=== PATIENT | male | born 1950 | race Caucasian/White ===

== ENCOUNTER → 2022-10-11 | Outpatient (CLI) | payer OTHER ==
[~2022-10-11] MED LIST: ACET325 PO; AMLO5 PO; GLIM2 PO; Lopressor 25 mg25 MG PO; SULTRIDS PO
== END | disposition home or self-care (01) ==
LOC: LAB SHORT 12:14 → LAB 12:14
DX: L57.0 Actinic keratosis (principal)
CPT/HCPCS: 88305

== ENCOUNTER → 2025-04-21 | Outpatient (CLI) | payer OTHER ==
[2025-04-21 13:21] LABS: BASOPHILS ABSOLUTE AUTO 0.07 K/mm3 (0.00-0.23); BASOPHILS PERCENT AUTO 1 % (0-2); EOSINOPHILS ABSOLUTE AUTO 0.27 K/mm3 (0.00-0.68); EOSINOPHILS PERCENT AUTO 4 % (0-6); Hematocrit 38.0 % (37.0-53.0); Hemoglobin 12.5 g/dL (13.5-17.5); IMMATURE GRAN ABSOLUTE AUTO 0.03 K/mm3 (0.00-0.10); IMMATURE GRAN PERCENT AUTO 0 % (0-1); LYMPHOCYTES ABSOLUTE AUTO 1.34 K/mm3 (0.84-5.20); LYMPHOCYTES PERCENT AUTO 20 % (21-46); MONOCYTES ABSOLUTE AUTO 0.66 K/mm3 (0.16-1.47); MONOCYTES PERCENT AUTO 10 % (4-13); Mean Corpuscular HGB Conc 32.9 g/dL (31.5-36.5); Mean Corpuscular Volume 101 fL (80-100); NEUTROPHILS ABSOLUTE AUTO 4.38 K/mm3 (1.96-9.15); NEUTROPHILS PERCENT AUTO 65 % (41-73); NRBC ABSOLUTE 0.00 K/mm3 (0.00-0.02); NRBC Auto 0.0 /100 WBC (0.0-0.2); Platelet Count 160 K/mm3 (150-400); RDW Coefficient Variation 14.5 % (11.7-14.2); RDW Standard Deviation 53.2 fL (35.1-46.3)
[2025-04-21 15:03] LABS: Alanine Aminotransfer (ALT/SGP 36.0 U/L (12-78); Albumin, Blood 4.2 g/dL (3.4-5.0); Albumin/Globulin Ratio 1.1 (0.8-1.8); Anion Gap 13.0 mmol/L (3-11); Aspartate Aminotrans (AST/SGOT 21.0 U/L (12-37); Bilirubin, Total 1.1 mg/dL (0.1-1.0); Blood Urea Nitrogen 86.0 mg/dL (8-24); CO2, Blood 21.0 mmol/L (21-32); Calcium, Blood 9.4 mg/dL (8.5-10.1); Chloride, Blood 109.0 mmol/L (98-108); Creatinine, Blood 4.1 mg/dL (0.60-1.20); Globulin, Blood 3.8 g/dL (2.2-4.0); Glucose, Blood 140.0 mg/dL (70-99); Potassium, Blood 5.1 mmol/L (3.5-5.5); Sodium, Blood 138.0 mmol/L (136-145); Total Protein, Blood 8.0 g/dL (6.4-8.2)
== END | disposition home or self-care (01) ==
LOC: LAB SHORT 09:24 → LAB 09:24 → LAB FUT 10-27 08:35
PROVIDERS: Physician Assistant Medical
DX: I12.9 Hypertensive chronic kidney disease with stage 1 through stage 4 chronic kidney disease, or unspecified chronic kidney disease (principal); E11.22 Type 2 diabetes mellitus with diabetic chronic kidney disease; N18.4 Chronic kidney disease, stage 4 (severe); E11.42 Type 2 diabetes mellitus with diabetic polyneuropathy; R60.1 Generalized edema; R06.02 Shortness of breath
CPT/HCPCS: 36415; 80053; 83036; 83880; 85025

== ENCOUNTER 2025-04-25 13:54 | Inpatient (IN) | payer OTHER ==
[~2025-04-25] VITALS: Ht 172.7 cm; Wt 86.2 kg
[2025-04-25 14:33] LABS: BASOPHILS ABSOLUTE AUTO 0.09 K/mm3 (0.00-0.23); BASOPHILS PERCENT AUTO 1 % (0-2); EOSINOPHILS ABSOLUTE AUTO 0.14 K/mm3 (0.00-0.68); EOSINOPHILS PERCENT AUTO 2 % (0-6); Hematocrit 36.1 % (37.0-53.0); Hemoglobin 11.9 g/dL (13.5-17.5); IMMATURE GRAN ABSOLUTE AUTO 0.04 K/mm3 (0.00-0.10); IMMATURE GRAN PERCENT AUTO 1 % (0-1); LYMPHOCYTES ABSOLUTE AUTO 0.80 K/mm3 (0.84-5.20); LYMPHOCYTES PERCENT AUTO 10 % (21-46); MONOCYTES ABSOLUTE AUTO 0.66 K/mm3 (0.16-1.47); MONOCYTES PERCENT AUTO 8 % (4-13); Mean Corpuscular HGB Conc 33.0 g/dL (31.5-36.5); Mean Corpuscular Volume 102 fL (80-100); NEUTROPHILS ABSOLUTE AUTO 6.46 K/mm3 (1.96-9.15); NEUTROPHILS PERCENT AUTO 79 % (41-73); NRBC ABSOLUTE 0.00 K/mm3 (0.00-0.02); NRBC Auto 0.0 /100 WBC (0.0-0.2); Platelet Count 135 K/mm3 (150-400); RDW Coefficient Variation 14.6 % (11.7-14.2); RDW Standard Deviation 54.1 fL (35.1-46.3)
[2025-04-25 14:35] LABS: pH Blood Venous 7.33 (7.34-7.37)
[2025-04-25 14:46] LABS: Anion Gap 12.0 mmol/L (3-11); Blood Urea Nitrogen 84.0 mg/dL (8-24); CO2, Blood 19.0 mmol/L (21-32); Calcium, Blood 9.2 mg/dL (8.5-10.1); Chloride, Blood 109.0 mmol/L (98-108); Creatinine, Blood 4.6 mg/dL (0.60-1.20); Glucose, Blood 189.0 mg/dL (70-99); Potassium, Blood 5.2 mmol/L (3.5-5.5); Sodium, Blood 135.0 mmol/L (136-145)
[2025-04-25 15:11] LABS: Influenza A, PCR NEGATIVE (NEGATIVE); Influenza B, PCR NEGATIVE (NEGATIVE); Resp Syncytial Virus, PCR NEGATIVE (NEGATIVE); SARS-Cov-2 (COVID-19) PCR, MMC NEGATIVE (NEGATIVE)
[2025-04-25] MEDS ORDERED: Dose Adjust by Pharmacy XX STA (15:30)
[2025-04-25] MEDS ORDERED: Heparin Sodium 5000 Units/ML 1ML MDV IV ONE (15:35)
[2025-04-25 15:45] LABS: Anti-Xa UFH, PHA Monitoring <0.10 IU/mL; Prothrombin Time Results 11.0 Sec (9.7-11.5)
[2025-04-25] MEDS ORDERED: Heparin Sodium,Porcine/0.5 NS 500 ML IV SCH (16:00)
[2025-04-25] MEDS ORDERED: SODBIC650 PO (18:45)
[2025-04-25] MEDS ORDERED: VITAMIN D5000 UNIT PO (18:45)
[2025-04-25] MEDS ORDERED: LOSA50 PO (18:45)
[2025-04-25] MEDS ORDERED: AMLO10 PO (18:46)
[2025-04-25] MEDS ORDERED: ALLO100 PO (18:46)
[2025-04-25] MEDS ORDERED: FURO40 PO (18:47)
[2025-04-25] MEDS ORDERED: CALC.25 PO (18:49)
[2025-04-25] MEDS ORDERED: GABA300 PO (18:50)
[2025-04-25] MEDS ORDERED: GLIM2 PO (18:52)
--- NOTE | 2025-04-25 18:53 | NUR ---
PT ARRIVED IN THE ROOM FROM [facility], REPORT RECEIVED FROM LUIS EDUARDO HAZEL., PT GOT SITUATED IN BED TRANSFERRED VIA SLIDER SHEET PT GETS REALLY SHORT OF BREATH WITH EXERTION. VITALS HRR SR 70'S, SBP 140'S, SATS ABOVE 90% ON 6L OF O2 VIA NASAL CANNULA, AFEBRILE. PT RECEIVED IV LASIX PRIOR TO ARRIVAL. HOME MEDICATION RECONCILED BROUGHT IN MEDS FROM HOME. PT NOW RESTING IN BED WILL REPORT TO ONCOMING SHIFT
[2025-04-25 18:56] VITALS: BP 149/73
--- NOTE | 2025-04-25 19:35 | NUR ---
ASSUMPTION OF CARE ASSUMED PT'S CARE AT 1900,BEDSIDE REPORT COMPLETED.PT SITTING UP IN BED EATING DINNER.PLAN OF CARE REVIEWED.PT A&O X4,DENIES PAIN,DENIES SOB AT REST.CALL LIGHT AND PT'S ITEMS WITHIN REACH.MONITORING ONGOING PER CAREPLAN.
[2025-04-25 20:18] VITALS: BP 140/103
[2025-04-25] MEDS ORDERED: Insulin Human Lispro 100 Units/ML 3ML Syringe SC SCH (21:00)
[2025-04-26] VITALS (8 sets, daily range): BP systolic 112–142; BP diastolic 56–94
[2025-04-26 04:44] LABS: BASOPHILS ABSOLUTE AUTO 0.06 K/mm3 (0.00-0.23); BASOPHILS PERCENT AUTO 1 % (0-2); EOSINOPHILS ABSOLUTE AUTO 0.20 K/mm3 (0.00-0.68); EOSINOPHILS PERCENT AUTO 3 % (0-6); Hematocrit 32.8 % (37.0-53.0); Hemoglobin 10.6 g/dL (13.5-17.5); IMMATURE GRAN ABSOLUTE AUTO 0.02 K/mm3 (0.00-0.10); IMMATURE GRAN PERCENT AUTO 0 % (0-1); LYMPHOCYTES ABSOLUTE AUTO 0.76 K/mm3 (0.84-5.20); LYMPHOCYTES PERCENT AUTO 12 % (21-46); MONOCYTES ABSOLUTE AUTO 0.74 K/mm3 (0.16-1.47); MONOCYTES PERCENT AUTO 12 % (4-13); Mean Corpuscular HGB Conc 32.3 g/dL (31.5-36.5); Mean Corpuscular Volume 103 fL (80-100); NEUTROPHILS ABSOLUTE AUTO 4.42 K/mm3 (1.96-9.15); NEUTROPHILS PERCENT AUTO 71 % (41-73); NRBC ABSOLUTE 0.00 K/mm3 (0.00-0.02); NRBC Auto 0.0 /100 WBC (0.0-0.2); Platelet Count 124 K/mm3 (150-400); RDW Coefficient Variation 14.5 % (11.7-14.2); RDW Standard Deviation 54.6 fL (35.1-46.3)
[2025-04-26 05:16] LABS: Albumin, Blood 3.3 g/dL (3.4-5.0); Anion Gap 13 mmol/L (3-11); Blood Urea Nitrogen 82 mg/dL (8-24); CO2, Blood 20 mmol/L (21-32); Calcium, Blood 8.3 mg/dL (8.5-10.1); Chloride, Blood 111 mmol/L (98-108); Creatinine, Blood 4.30 mg/dL (0.60-1.20); Glucose, Blood 97 mg/dL (70-99); Magnesium, Blood 2.7 mg/dL (1.6-2.4); Phosphorus, Blood 4.9 mg/dL (2.5-4.9); Potassium, Blood 4.9 mmol/L (3.5-5.5); Sodium, Blood 139 mmol/L (136-145)
--- NOTE | 2025-04-26 06:15 | NUR ---
PT MONITORED DURING THE SHIFT.OXYGEN FLOWRATE TITRATED DOWN TO 4L WHILE ASLEEP BUT REQUIRED 6-8L WITH ACTIVITY.PT SB-SR ON TELE WITH HR 58-72.PT AMBULATED TO THE TOILET WITH STANDBY ASSIST.PT SLEEPING AT THIS TIME,OPENS EYES TO VERBAL COMMAND.PT DENIES,PAIN,DENIES SOB AT REST,DENIES NEEDS.CALL LIGHT AND PT'S ITEMS WITHIN REACH.MONITORING ONGOING PER CAREPLAN.
[2025-04-26] MEDS ORDERED: Heparin Sodium,Porcine 5,000 UNIT/0.5 ML SDV SC SCH (09:00)
--- NOTE | 2025-04-26 09:35 | NUR ---
MEDICATION RECONCILIATION COMPLETED BY THIS RN - PT BROUGHT PILL BOTTLES IN. NOTABLY NOT ON METOPROLOL. UPDATED DR. HOBSON AND ORDER COMPLETED IN [facility]
[2025-04-26 16:16] LABS: Anion Gap 8.0 mmol/L (3-11); Blood Urea Nitrogen 88.0 mg/dL (8-24); CO2, Blood 25.0 mmol/L (21-32); Calcium, Blood 9.3 mg/dL (8.5-10.1); Chloride, Blood 109.0 mmol/L (98-108); Creatinine, Blood 4.11 mg/dL (0.60-1.20); Glucose, Blood 157.0 mg/dL (70-99); Potassium, Blood 5.0 mmol/L (3.5-5.5); Sodium, Blood 137.0 mmol/L (136-145)
--- NOTE | 2025-04-26 18:30 | NUR ---
SHIFT SUMMARY PATIENT IS ALERT AND ORIENTED, ABLE TO FOLLOW COMMANDS AND MAKE NEEDS KNOWN. BP AND HR STABLE, SPO2 >90% ON 4L VIA NC PATIENT REQUIRES 6-8L VIA NC DURING AMBULATION. ACCESORY MUSCLE USE NOTED, PATIENT REPORTS SHORTNESS OF BREATH WHILE AT REST AND DURING ACTIVITY. TELE IN PLACE, SINUS RHYTHM IN THE 70'S, PATIENT DENIES PRESENCE OF CHEST PAIN OR PRESSURE. ABDOMEN MODERATELY DISTENDED, FIRM, AND NON TENDER ON PALPATION. SIGNIFICATE URINE OUTPUT THIS SHIFT, PATIENT DENIES DISCOMFORT WITH URINATION. 3+ PITTING EDEMA NOTED IN BLE. ECHO AND RENAL ULTRASOUND DONE THIS SHIFT, SEE NOTES FOR MORE DETAILS. PATIENT IS A SBA TO BATHROOM. PATIENT IN BED, BED IN LOWEST POSITION, CALL LIGHT WITHIN REACH.
[2025-04-27 03:57] LABS: pH Blood Venous 7.38 (7.34-7.37)
[2025-04-27 04:37] VITALS: BP 141/72
[2025-04-27 04:37] LABS: BASOPHILS ABSOLUTE AUTO 0.05 K/mm3 (0.00-0.23); BASOPHILS PERCENT AUTO 1 % (0-2); EOSINOPHILS ABSOLUTE AUTO 0.21 K/mm3 (0.00-0.68); EOSINOPHILS PERCENT AUTO 4 % (0-6); Hematocrit 35.7 % (37.0-53.0); Hemoglobin 11.6 g/dL (13.5-17.5); IMMATURE GRAN ABSOLUTE AUTO 0.02 K/mm3 (0.00-0.10); IMMATURE GRAN PERCENT AUTO 0 % (0-1); LYMPHOCYTES ABSOLUTE AUTO 0.90 K/mm3 (0.84-5.20); LYMPHOCYTES PERCENT AUTO 15 % (21-46); MONOCYTES ABSOLUTE AUTO 0.62 K/mm3 (0.16-1.47); MONOCYTES PERCENT AUTO 11 % (4-13); Mean Corpuscular HGB Conc 32.5 g/dL (31.5-36.5); Mean Corpuscular Volume 103 fL (80-100); NEUTROPHILS ABSOLUTE AUTO 4.08 K/mm3 (1.96-9.15); NEUTROPHILS PERCENT AUTO 69 % (41-73); NRBC ABSOLUTE 0.00 K/mm3 (0.00-0.02); NRBC Auto 0.0 /100 WBC (0.0-0.2); Platelet Count 127 K/mm3 (150-400); RDW Coefficient Variation 14.4 % (11.7-14.2); RDW Standard Deviation 54.6 fL (35.1-46.3)
--- NOTE | 2025-04-27 05:04 | NUR ---
SHIFT SUMMARY PT A&O X4. ABLE TO MAKE NEEDS KNOWN. PT NEEDING 4-6L DURING THIS NOC SHIFT TO MAINTAIN SPO2. PT DESATS WITH SLEEPING AND BREATHES THROUGH MOUGHT AT TIMES. WHEN AWAKE PT NEEDING 4L VIA NC. DYSPNEA WITH EXERTION. BLE PITTING EDEMA NOTED. PT ON FLUID RESTRICTION AND RECEIVED MAX 300MLS DURING THIS SHIFT. PT EDUCATED ON FLUID RESTRICTION. USING URINAL AT BEDSIDE. ABLE TO REPOSITION SELF INDEPENDENTLY. VSS. BED IN LOWEST POSITION AND CALL LIGHT WITHIN REACH. THIS RN WILL REPORT TO ONCOMING DAYSHIFT RN.
[2025-04-27 07:29] VITALS: BP 148/84
[2025-04-27 09:00] LABS: Alanine Aminotransfer (ALT/SGP 35.0 U/L (12-78); Albumin, Blood 3.6 g/dL (3.4-5.0); Albumin/Globulin Ratio 1.0 (0.8-1.8); Anion Gap 11.0 mmol/L (3-11); Aspartate Aminotrans (AST/SGOT 20.0 U/L (12-37); Bilirubin, Total 0.8 mg/dL (0.1-1.0); Blood Urea Nitrogen 83.0 mg/dL (8-24); CO2, Blood 23.0 mmol/L (21-32); Calcium, Blood 8.9 mg/dL (8.5-10.1); Chloride, Blood 111.0 mmol/L (98-108); Creatinine, Blood 3.93 mg/dL (0.60-1.20); Globulin, Blood 3.7 g/dL (2.2-4.0); Glucose, Blood 104.0 mg/dL (70-99); Potassium, Blood 5.0 mmol/L (3.5-5.5); Sodium, Blood 140.0 mmol/L (136-145); Total Protein, Blood 7.3 g/dL (6.4-8.2)
--- NOTE | 2025-04-27 09:24 | NUR ---
AM NOTE: PATIENT ALERT AND ORIENTED. SBA TO BATHROOM. MOVING ALL EXTREMITIES. DENIES PAIN. MOI, RENU AT BEDSIDE. TELE SHOWING SR WITH HR 70-80'S. SBP 140'S. DENIES CHEST PAIN/PRESSURE/PALPITATIONS. PPP. EDEMA NOTED TO BLE WORSE ON LEFT. IV BUMEX GIVEN THIS AM PER EMAR. DR. BRYAN TO BEDSIDE THIS AM. PLAN FOR CARDIAC STRESS TEST TODAY. ECHO RESULTS DISCUSSED WITH PATIENT. PLAN FOR NEPHROLOGY CONSULT, CALLED INTO DR. Rodgers. ON 4-6L NASAL CANNULA. SOB WITH EXERTION. RR 20-24. CRACKLES HEARD IN BILATERAL LOWER LOBES. DENIES COUGH. STRICT INTAKE AND OUTPUT. 1,200ML/DAY FLUID RESTRICTION. BOWEL TONES PRESENT. NPO AT THIS TIME FOR CARDIAC STRESS TEST. USING URINAL TO VOID. COMPLAINS OF FEELING "BLOATED AND GASSY". PATIENT DISCUSSED WITH DR. SQUIRES AND MEDICAL STUDENT. SKIN FRAGILE WITH SCATTERED BRUISING. PATIENT UPDATED FAMILY VIA PERSONAL CELLPHONE THIS AM. CALL LIGHT IN REACH.
[2025-04-27] MEDS ORDERED: Aminophylline 250MG / 10ML 10 ML Vial ONE (10:38)
[2025-04-27 11:38] VITALS: BP 134/78
--- NOTE | 2025-04-27 13:22 | NUR ---
STRESS TEST COMPLETED, RESULTS PENDING. PATIENT ATE A FULL LUNCH. STRICT INTAKE AND OUTPUT WITH FLUID RESTRICTION. VITAL SIGNS STABLE. RESTING IN BED WATCHING TV. REMAINS ON 6L NASAL CANNULA AT THIS TIME. TELE SHOWING SR. DENIES PAINS/NEEDS. CALL LIGHT IN REACH.
[2025-04-27 15:35] VITALS: BP 144/76
--- NOTE | 2025-04-27 16:27 | NUR ---
DR. Rodgers TO BEDSIDE, THIS RN PRESENT. NO NEW ORDERS TO PLACE.
--- NOTE | 2025-04-27 17:43 | NUR ---
SHIFT SUMMARY: NO ACUTE CHANGES, SEE PREVIOUS NOTES FOR UPDATES THROUGHOUT THE DAY. PATIENT REMAINS ON 4-6L NASAL CANNULA. TELE SHOWING SINUS RHYTHM WITH HR 70'S. FLUID RESTRICTION MAINTAINED. STRESS TEST COMPLETED THIS SHIFT. DR. Rodgers TO BEDSIDE THIS EVENING. PATIENT EATING DINNER AT THIS TIME SITTING UP ON EDGE OF BED. DENIES NEEDS. CALL LIGHT IN REACH.
--- NOTE | 2025-04-27 19:15 | NUR ---
ASSUMPTION OF CARE BEDSIDE REPORT PROVIDED BY DAY SHIFT RN. PT RESTING COMFORTABLY IN BED IN LEGER'S POSITION. PT IN NO OBVIOUS DISTRESS. DENIES NEEDS AT THIS TIME. PT ABLE TO CHANGE POSITIONS IN BED IND, HAS BEEN AMBULATING TO RR W/O ISSUE. PT ON FLUID RESTRICTION. CURRENTLY HAS 400ML INTAKE FLUIDS, WORKING ON DRINKING CUP OF SODA. PT WATCHING TV, CALL LIGHT IN REACH. BED IN LOWEST POSITION. ABLE TO MAKE NEEDS KNOWN.
[2025-04-27 19:52] VITALS: BP 139/77
[2025-04-28] VITALS (7 sets, daily range): BP systolic 109–148; BP diastolic 57–79
--- NOTE | 2025-04-28 04:50 | NUR ---
SHIFT SUMMARY PATIENT A/OX4. DENIES CP OR SOB. LS CLEAR IN UPPER LOBES WITH CRACKLES IN BASES. O2 TITRATED FROM 6L/MIN TO 5L/MIN. PATIENT UP INDEPENDENTLY/SBA TO UTILIZE URINAL. PATIENT FOLLOWING FLUID RESTRICTION, 1500ML TOTAL IN 24 HOURS. PATIENT SLEPT WELL AFTER MIDNIGHT. ABLE TO TURN HIMSELF IN BED INDEPENDENTLY. SR ON MONITOR. VSS. CALL LIGHT REMAINS IN REACH AND BED IN LOWEST POSITION.
[2025-04-28 06:17] LABS: Albumin, Blood 3.2 g/dL (3.4-5.0); Anion Gap 12 mmol/L (3-11); Blood Urea Nitrogen 92 mg/dL (8-24); CO2, Blood 24 mmol/L (21-32); Calcium, Blood 8.8 mg/dL (8.5-10.1); Chloride, Blood 109 mmol/L (98-108); Creatinine, Blood 4.01 mg/dL (0.60-1.20); Glucose, Blood 70 mg/dL (70-99); Phosphorus, Blood 4.9 mg/dL (2.5-4.9); Potassium, Blood 4.4 mmol/L (3.5-5.5); Sodium, Blood 141 mmol/L (136-145); Total Iron Binding Capacity 273 ug/dL (250-450); Uric Acid, Blood 6.5 mg/dL (3.5-7.2)
[2025-04-28 06:34] LABS: BASOPHILS ABSOLUTE AUTO 0.07 K/mm3 (0.00-0.23); BASOPHILS PERCENT AUTO 1 % (0-2); EOSINOPHILS ABSOLUTE AUTO 0.24 K/mm3 (0.00-0.68); EOSINOPHILS PERCENT AUTO 4 % (0-6); Hematocrit 34.8 % (37.0-53.0); Hemoglobin 11.3 g/dL (13.5-17.5); IMMATURE GRAN ABSOLUTE AUTO 0.01 K/mm3 (0.00-0.10); IMMATURE GRAN PERCENT AUTO 0 % (0-1); LYMPHOCYTES ABSOLUTE AUTO 1.07 K/mm3 (0.84-5.20); LYMPHOCYTES PERCENT AUTO 18 % (21-46); MONOCYTES ABSOLUTE AUTO 0.74 K/mm3 (0.16-1.47); MONOCYTES PERCENT AUTO 12 % (4-13); Mean Corpuscular HGB Conc 32.5 g/dL (31.5-36.5); Mean Corpuscular Volume 101 fL (80-100); NEUTROPHILS ABSOLUTE AUTO 3.83 K/mm3 (1.96-9.15); NEUTROPHILS PERCENT AUTO 64 % (41-73); NRBC ABSOLUTE 0.00 K/mm3 (0.00-0.02); NRBC Auto 0.0 /100 WBC (0.0-0.2); Platelet Count 146 K/mm3 (150-400); RDW Coefficient Variation 14.4 % (11.7-14.2); RDW Standard Deviation 52.5 fL (35.1-46.3)
[2025-04-28 06:46] LABS: Alanine Aminotransfer (ALT/SGP 29.0 U/L (12-78); Albumin, Blood 3.2 g/dL (3.4-5.0); Albumin/Globulin Ratio 0.9 (0.8-1.8); Anion Gap 11.0 mmol/L (3-11); Aspartate Aminotrans (AST/SGOT 19.0 U/L (12-37); Bilirubin, Total 0.7 mg/dL (0.1-1.0); Blood Urea Nitrogen 86.0 mg/dL (8-24); CO2, Blood 22.0 mmol/L (21-32); Calcium, Blood 8.8 mg/dL (8.5-10.1); Chloride, Blood 109.0 mmol/L (98-108); Creatinine, Blood 3.85 mg/dL (0.60-1.20); Globulin, Blood 3.5 g/dL (2.2-4.0); Glucose, Blood 74.0 mg/dL (70-99); Potassium, Blood 4.3 mmol/L (3.5-5.5); Sodium, Blood 138.0 mmol/L (136-145); Total Protein, Blood 6.7 g/dL (6.4-8.2)
[2025-04-28] MEDS ORDERED: Cholecalciferol 1000 Unit Tablet (=25MCG) PO SCH ×2 (09:00)
--- NOTE | 2025-04-28 16:59 | NUR ---
SHIFT SUMMARY: A/OX4, PLEASANT AND COOPERATIVE WITH CARE, ABLE TO COMMUNICATE NEEDS DOES NOT USE CALL LIGHT APPROPRIATELY. NSR, HR 70'S, 04/26/25 ECHO EF: 23%, DENIES CHEST CHEST PAIN OR PRESSURE. ON 1-6L O2 VIA NC, RA AT BASELINE, TITRATED DOWN FROM 6L TO 1L, SPO2 >92%. COMPLIANT WITH FLUID RESTRICTION OF 1200, NEGATIVE FLUID BALANCE OF 1725 MLS THIS SHIFT. PT REPORTS 3 SOFT BM'S THIS SHIFT, EDUCATED SUPERINTENDENT [employer] DON'T FALL, PT INDEPENDENTLY AMBULATES TO THE BATHROOM AND REPORTS HE FEELS STEADY ON HIS FEET, DENIES CHEST PAIN, PRESSURE, SOB, OR DIZZINESS. PT DECLINES INSULIN, PROVIDED EDUCATION ON DIABETIC MANAGEMENT AND POTENTIAL COMPLICATIONS STATUS. CHANGED TO MEDICAL FLOOR WITH TELE.
[2025-04-29 04:24] LABS: BASOPHILS ABSOLUTE AUTO 0.06 K/mm3 (0.00-0.23); BASOPHILS PERCENT AUTO 1 % (0-2); EOSINOPHILS ABSOLUTE AUTO 0.26 K/mm3 (0.00-0.68); EOSINOPHILS PERCENT AUTO 4 % (0-6); Hematocrit 33.3 % (37.0-53.0); Hemoglobin 11.2 g/dL (13.5-17.5); IMMATURE GRAN ABSOLUTE AUTO 0.02 K/mm3 (0.00-0.10); IMMATURE GRAN PERCENT AUTO 0 % (0-1); LYMPHOCYTES ABSOLUTE AUTO 1.30 K/mm3 (0.84-5.20); LYMPHOCYTES PERCENT AUTO 18 % (21-46); MONOCYTES ABSOLUTE AUTO 0.84 K/mm3 (0.16-1.47); MONOCYTES PERCENT AUTO 12 % (4-13); Mean Corpuscular HGB Conc 33.6 g/dL (31.5-36.5); Mean Corpuscular Volume 101 fL (80-100); NEUTROPHILS ABSOLUTE AUTO 4.70 K/mm3 (1.96-9.15); NEUTROPHILS PERCENT AUTO 66 % (41-73); NRBC ABSOLUTE 0.00 K/mm3 (0.00-0.02); NRBC Auto 0.0 /100 WBC (0.0-0.2); Platelet Count 141 K/mm3 (150-400); RDW Coefficient Variation 14.2 % (11.7-14.2); RDW Standard Deviation 52.5 fL (35.1-46.3)
[2025-04-29 04:30] VITALS: BP 105/56
[2025-04-29 05:02] LABS: Albumin, Blood 3.2 g/dL (3.4-5.0); Anion Gap 10 mmol/L (3-11); Blood Urea Nitrogen 98 mg/dL (8-24); CO2, Blood 26 mmol/L (21-32); Calcium, Blood 8.5 mg/dL (8.5-10.1); Chloride, Blood 105 mmol/L (98-108); Creatinine, Blood 3.99 mg/dL (0.60-1.20); Glucose, Blood 75 mg/dL (70-99); Phosphorus, Blood 5.4 mg/dL (2.5-4.9); Potassium, Blood 4.2 mmol/L (3.5-5.5); Sodium, Blood 137 mmol/L (136-145)
--- NOTE | 2025-04-29 05:24 | NUR ---
SHIFT SUMMARY PT A&O X4. ABLE TO MAKE NEEDS KNOWN. SR ON MONITOR. BP STABLE. AFEBRILE. ON 3-4L VIA NC TO MAINTAIN SPO2. INCREASED O2 DEMANDS WHILE SLEEPING AND WITH EXERTION. BLE EDEMA IMPROVED FROM PREVIOUS NOC SHIFTS. PT STAYING WITHIN FLUID RESTRICTION. ABLE TO REPOSITION SELF IN BED. USING URINAL INDEPENDENTLY AT BEDSIDE. BED IN LOWEST POSITION AND CALL LIGHT WITHIN REACH. THIS RN WILL REPORT TO ONCOMING DAYSHIFT RN.
[2025-04-29 09:41] VITALS: BP 142/72
[2025-04-29] MEDS ORDERED: BUME2 PO (12:44)
[2025-04-29] MEDS ORDERED: METO25ER PO (12:44)
[2025-04-29] MEDS ORDERED: ASPI81CH PO (12:45)
[2025-04-29] MEDS ORDERED: ATOR10 PO (12:46)
[2025-04-29 15:21] VITALS: BP 127/71
--- NOTE | 2025-04-29 16:29 | NUR ---
Transfer to Medical Pt medical w/ telemetry status. A&O x4. VSS. Spo2 > 92% on RA at rest, requiring 2L NC w/ activity. Pt able to ambulate independently. Monitor showing NSR, HR 60s. Pt anticipating discharge home tomorrow. Report given to accepting medical floor RN assuming care of pt. Pt being taken to rm 301 by PCT in wheelchair w/ belongings at this time. Pt denies need for staff to notify family of pt transfer & states he will notify family.
--- NOTE | 2025-04-29 16:49 | NUR ---
PT ARRIVED TO 301 A TRANSFER FROM [facility]. ALERT AND ORIENTEDX4, SITTING UP IN CHAIR. PROVIDED WARM BLANKET AND ICE WATER. NO NEEDS AT THIS TIME
[2025-04-29 19:09] VITALS: BP 131/79
[2025-04-30 00:16] VITALS: BP 99/70
[2025-04-30 04:15] VITALS: BP 126/71
[2025-04-30 04:46] LABS: BASOPHILS ABSOLUTE AUTO 0.07 K/mm3 (0.00-0.23); BASOPHILS PERCENT AUTO 1 % (0-2); EOSINOPHILS ABSOLUTE AUTO 0.27 K/mm3 (0.00-0.68); EOSINOPHILS PERCENT AUTO 4 % (0-6); Hematocrit 35.5 % (37.0-53.0); Hemoglobin 11.9 g/dL (13.5-17.5); IMMATURE GRAN ABSOLUTE AUTO 0.03 K/mm3 (0.00-0.10); IMMATURE GRAN PERCENT AUTO 1 % (0-1); LYMPHOCYTES ABSOLUTE AUTO 1.37 K/mm3 (0.84-5.20); LYMPHOCYTES PERCENT AUTO 21 % (21-46); MONOCYTES ABSOLUTE AUTO 0.82 K/mm3 (0.16-1.47); MONOCYTES PERCENT AUTO 12 % (4-13); Mean Corpuscular HGB Conc 33.5 g/dL (31.5-36.5); Mean Corpuscular Volume 98 fL (80-100); NEUTROPHILS ABSOLUTE AUTO 4.03 K/mm3 (1.96-9.15); NEUTROPHILS PERCENT AUTO 61 % (41-73); NRBC ABSOLUTE 0.00 K/mm3 (0.00-0.02); NRBC Auto 0.0 /100 WBC (0.0-0.2); Platelet Count 164 K/mm3 (150-400); RDW Coefficient Variation 14.0 % (11.7-14.2); RDW Standard Deviation 51.1 fL (35.1-46.3)
[2025-04-30 05:04] LABS: Albumin, Blood 3.4 g/dL (3.4-5.0); Anion Gap 12 mmol/L (3-11); Blood Urea Nitrogen 110 mg/dL (8-24); CO2, Blood 25 mmol/L (21-32); Calcium, Blood 8.6 mg/dL (8.5-10.1); Chloride, Blood 102 mmol/L (98-108); Creatinine, Blood 4.24 mg/dL (0.60-1.20); Glucose, Blood 104 mg/dL (70-99); Phosphorus, Blood 6.2 mg/dL (2.5-4.9); Potassium, Blood 3.8 mmol/L (3.5-5.5); Sodium, Blood 135 mmol/L (136-145)
--- NOTE | 2025-04-30 06:44 | NUR ---
EMD OF SHIFT REPORT RESUMED CARE OF PT AT 0400. PT VSS, GOT UP TO BE WEIGHED, DENIED SOB OR PAIN. ON FLUID RESTRICTION BUT PT DID NOT DRINK ANYTHING FOR THE REST OF THIS SHIFT FOR STRICT I AND OS FOR DAILY FLUID RESTRICTION. PT HAS LOST 7.3 KG FROM ADMISSION. CONTINUE HEART FAILURE REGIMEN.
[2025-04-30 07:15] VITALS: BP 114/65
[2025-04-30 11:45] VITALS: BP 120/71
[2025-04-30] MEDS ORDERED: JARDIANCE10 MG PO (13:20)
[2025-04-30] MEDS ORDERED: FERROUS GLUCON324 M2 (13:24)
--- NOTE | 2025-04-30 14:50 | NUR ---
DISCHARGE NOTE: WENT OVER DISCHARGE WITH THE PATIENT. HIS IV AND TELE WERE REMOVED. PATIENT GOT HIMSELF DRESSED AND COLLECTED BELONGINGS. PATIENT REQUEST TO WALK VS BEING WHEELED DOWN. PATIENT WALKED OUT OF UNIT WITH . NO SIGNS OR SYMPTOMS OF DISTRESS WITH CHARGE.
== END 2025-04-30 14:25 | disposition home health service (06) | DRG 280 ==
LOC: ER 13:54 → PCU 16:40 → MEDS 04-29 16:30
PROVIDERS: Emergency Medicine; Hospitalist; ADMIT Internal Medicine
DX: I13.0 Hypertensive heart and chronic kidney disease with heart failure and stage 1 through stage 4 chronic kidney disease, or unspecified chronic kidney disease (principal); I50.21 Acute systolic (congestive) heart failure; I21.A1 Myocardial infarction type 2; J96.01 Acute respiratory failure with hypoxia; N18.4 Chronic kidney disease, stage 4 (severe); N17.9 Acute kidney failure, unspecified; E87.20 Acidosis, unspecified; N25.81 Secondary hyperparathyroidism of renal origin; E11.22 Type 2 diabetes mellitus with diabetic chronic kidney disease; E11.42 Type 2 diabetes mellitus with diabetic polyneuropathy; D63.1 Anemia in chronic kidney disease; I42.0 Dilated cardiomyopathy; Z79.84 Long term (current) use of oral hypoglycemic drugs; Z79.899 Other long term (current) drug therapy; Z87.891 Personal history of nicotine dependence; Z98.890 Other specified postprocedural states; Z87.01 Personal history of pneumonia (recurrent)
CPT/HCPCS: 36415; 71045; 76770; 78452; 80048; 80053; 80069; 82607; 82746; 82803; 82947; 83540; 83550; 83735; 83880; 84145; 84484; 84550; 85025; 85379; 85520; 85610; 87637; 93005; 93010; 93017; 94761; 94762; 96374; 96375; 97162; 97165; 97530; 99285-25; A9270; A9500; C8929; J0280; J1644; J1938; J2785; Q9957

== ENCOUNTER 2025-05-24 11:17 | Emergency (ER) | payer OTHER ==
[~2025-05-24] VITALS: Ht 172.7 cm; Wt 81.7 kg
[~2025-05-24 11:17] MED LIST changes: +ALLO100 PO; +AMLO10 PO; +ASPI81CH PO; +ATOR10 PO; +BUME2 PO; +CALC.25 PO; +FERROUS GLUCON324 M2; +FURO40 PO; +GABA300 PO; +JARDIANCE10 MG PO; +LOSA50 PO; +METO25ER PO; +SODBIC650 PO; +VITAMIN D5000 UNIT PO
[2025-05-24 11:44] VITALS: BP 126/77
[2025-05-24 12:18] LABS: BASOPHILS ABSOLUTE AUTO 0.07 K/mm3 (0.00-0.23); BASOPHILS PERCENT AUTO 1 % (0-2); EOSINOPHILS ABSOLUTE AUTO 0.22 K/mm3 (0.00-0.68); EOSINOPHILS PERCENT AUTO 2 % (0-6); Hematocrit 40.7 % (37.0-53.0); Hemoglobin 14.1 g/dL (13.5-17.5); IMMATURE GRAN ABSOLUTE AUTO 0.05 K/mm3 (0.00-0.10); IMMATURE GRAN PERCENT AUTO 1 % (0-1); LYMPHOCYTES ABSOLUTE AUTO 1.33 K/mm3 (0.84-5.20); LYMPHOCYTES PERCENT AUTO 12 % (21-46); MONOCYTES ABSOLUTE AUTO 0.77 K/mm3 (0.16-1.47); MONOCYTES PERCENT AUTO 7 % (4-13); Mean Corpuscular HGB Conc 34.6 g/dL (31.5-36.5); Mean Corpuscular Volume 94 fL (80-100); NEUTROPHILS ABSOLUTE AUTO 8.48 K/mm3 (1.96-9.15); NEUTROPHILS PERCENT AUTO 78 % (41-73); NRBC ABSOLUTE 0.00 K/mm3 (0.00-0.02); NRBC Auto 0.0 /100 WBC (0.0-0.2); Platelet Count 156 K/mm3 (150-400); RDW Coefficient Variation 12.9 % (11.7-14.2); RDW Standard Deviation 44.4 fL (35.1-46.3)
[2025-05-24 12:50] LABS: Alanine Aminotransfer (ALT/SGP 32.0 U/L (12-78); Albumin, Blood 3.9 g/dL (3.4-5.0); Albumin/Globulin Ratio 0.8 (0.8-1.8); Anion Gap 14.0 mmol/L (3-11); Aspartate Aminotrans (AST/SGOT 23.0 U/L (12-37); Bilirubin, Total 1.3 mg/dL (0.1-1.0); Blood Urea Nitrogen 173.0 mg/dL (8-24); CO2, Blood 25.0 mmol/L (21-32); Calcium, Blood 9.3 mg/dL (8.5-10.1); Chloride, Blood 99.0 mmol/L (98-108); Creatinine, Blood 4.46 mg/dL (0.60-1.20); Globulin, Blood 4.6 g/dL (2.2-4.0); Glucose, Blood 242.0 mg/dL (70-99); Potassium, Blood 5.0 mmol/L (3.5-5.5); Sodium, Blood 133.0 mmol/L (136-145); Total Protein, Blood 8.5 g/dL (6.4-8.2)
[2025-05-24] MEDS ORDERED: NS 1,000 ML IV SCH (13:15)
== END 2025-05-24 14:54 | disposition home or self-care (01) ==
LOC: ER 11:17
PROVIDERS: Physician Assistant
DX: N17.9 Acute kidney failure, unspecified (principal); E86.0 Dehydration; I10 Essential (primary) hypertension; E11.9 Type 2 diabetes mellitus without complications; Z79.899 Other long term (current) drug therapy; Z87.891 Personal history of nicotine dependence
CPT/HCPCS: 80053; 85025; J7030